=== PATIENT | female | born 1975 | race American Indian/Alaskan Native ===

== ENCOUNTER 2017-06-11 13:03 | Outpatient (CLI) | payer OTHER ==
--- NOTE | 2017-06-11 14:02 | Mammography Report ---
The patient had this exam on the date indicated above. It was indicated to us that previous films should be available that would be helpful in providing optimal evaluation with regards to the current study. A final report will be issued, pending receipt of the prior study. CAD was utilized.
== END 2017-06-11 13:04 | disposition home or self-care (01) ==
LOC: MAMMO 13:03
PROVIDERS: ATTEND Family Medicine
DX: Z12.31 Encounter for screening mammogram for malignant neoplasm of breast (principal)
CPT/HCPCS: 77063; G0202; 77067